=== PATIENT | female | born 1960 | race Caucasian/White ===

== ENCOUNTER 2016-06-28 11:43 | Emergency (ER) | payer BC ==
[~2016-06-28] VITALS: Wt 77.6 kg
[~2016-06-28 11:43] MED LIST: CYCL-319 PO; FLUT9.9S NASAL; GUAI473L22 PO; IBUP-1542 PO; LORA10TA3 PO; NAPR-260 PO; SODI30SP2 NS
[2016-06-28] MEDS ORDERED: ASPIRIN 325 MG TAB PO STA (12:27)
[2016-06-28] MEDS ORDERED: LORAZEPAM 2 MG INJ IV ONE (12:30)
[2016-06-28 13:01] LABS: CHLORIDE 104 mmol/L (97-110); SODIUM 145 mmol/L (135-144)
[2016-06-28 13:02] LABS: POTASSIUM 3.9 mmol/L (3.5-5.1)
[2016-06-28 13:05] LABS: ANION GAP 14 (8-16); BLOOD UREA NITROGEN 14 mg/dl (7-20); CALCIUM 9.5 mg/dl (8.4-10.2); CARBON DIOXIDE 31 mmol/L (21-31); GLUCOSE 99 mg/dl (70-220); INR 0.92; PROTIME 12.4 Sec (12.2-14.2)
[2016-06-28 13:10] LABS: BASOPHILS % 0.6 % (0.0-2.0); EOSINOPHILS # 0.1 10^3/ul (0.0-0.5); EOSINOPHILS % 1.3 % (0.0-7.0); HEMATOCRIT 41.4 % (37.0-47.0); HEMOGLOBIN 13.9 g/dl (12.0-16.0); LYMPHOCYTES % 44.1 % (15.0-51.0); MEAN CORPUSCULAR HEMOGLOBIN 30.2 pg (29.0-33.0); MEAN CORPUSCULAR HGB CONC 33.5 g/dl (32.0-37.0); MEAN PLATELET VOLUME 9.8 fl (7.4-10.4); MONOCYTE # 0.7 10^3/ul (0.3-0.9); MONOCYTES % 10.3 % (0.0-11.0); NEUTROPHIL # 2.9 10^3/ul (1.6-7.5); NEUTROPHILS % 43.7 % (39.0-77.0); PLATELET COUNT 204 10^3/UL (140-440); RED CELL DISTRIBUTION WIDTH 13.4 % (11.5-14.5); UNCORRECTED WBC 6.7 10^3/ul (4.8-10.8); WHITE BLOOD COUNT 6.7 10^3/ul (4.8-10.8)
[2016-06-28 13:14] LABS: CONDITION 1
[2016-06-28 13:17] LABS: TROPONIN-I < 0.012 ng/ml (0.00-0.12)
--- NOTE | 2016-06-28 13:23 | ERD ---
ER Documentation Chief Complaint Date/Time DATE: 06/28/16 TIME: 13:19 Chief Complaint CHEST PAIN X3 DAYS, WORSE TODAY, NO SOB HPI 55-year-old female history of hypertension recently not taking medications based on primary care advisement. The patient presents with elevated blood pressure and chest pain. The patient's history is somewhat different than what was taken at triage. I believe this is secondary to language barrier. Using an adult care provider she states that she has not felt well over the last several days. 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 Once this happened the patient's blood pressure became elevated and the patient described chest pain was pressure-like with associated left arm discomfort. The patient and family member state that these symptoms are very similar to every time the patient becomes anxious. They state that multiple episodes of this have happened in the past. She denies any significant headache and states that the symptoms are very similar to anxiety. She denies any exertional symptoms, no pleuritic pain. She is a non-smoker no family history of early cardiac disease. ROS All systems reviewed and are negative except as per history of present illness. Medications Home Meds Active Scripts Lorazepam* (Ativan*) 0.5 Mg Tablet, 0.5 MG PO Q8H Y for ANXIETY, #8 TAB Prov:ALLISON CARSON MD 06/28/16 Loratadine* (Loratadine*) 10 Mg Tablet, 10 MG PO DAILY, #30 TAB Prov:MARGARITA LOPEZ NP 01/05/16 Ibuprofen* (Motrin*) 600 Mg Tab, 600 MG PO Q6H Y for PAIN AND OR ELEVATED TEMP, #30 TAB Prov:MARGARITA LOPEZ NP 01/05/16 Guaifenesin-Codeine Phosphate* (Guaifenesin* AC Cough Syrup) 473 Ml Liquid, 5 ML PO Q4H Y for COUGH, #120 ML Prov:MARGARITA LOPEZ NP 01/05/16 Sodium Chloride (Saline Nasal [place]) 30 Ml [place], 2 SPR NS Q2H Y for NASAL CONGESTION, #1 BOT Prov:MARGARITA LOPEZ NP 01/05/16 Fluticasone Propionate (Flonase Allergy Relief) 9.9 Ml [place].susp, 1 SPRAY NASAL DAILY, #1 BOTTLE TO EACH NOSTRIL Prov:MARGARITA LOPEZ. [employer] CABLE SPLICER 01/05/16 Cyclobenzaprine Hcl* (Cyclobenzaprine Hcl*) 10 Mg Tablet, 10 MG PO TID for muscle spasm for 5 Days, #15 TAB Prov:MANAGBRANDINODVIKI P [employer] CABLE SPLICER 11/23/15 Naproxen* (Naprosyn*) 500 Mg Tablet, 500 MG PO BID Y for PAIN AND/OR INFLAMMATION for 10 Days, #30 TAB Prov:MANAGUELOD,VIKI P [employer] CABLE SPLICER 11/23/15 Allergies Allergies: Coded Allergies: No Known Allergy (Unverified , 08/07/15) PMhx/Soc History of Surgery: No Anesthesia Reaction: No Hx Neurological Disorder: No Hx Respiratory Disorders: No Hx Cardiac Disorders: No Hx Psychiatric Problems: No Hx Miscellaneous Medical Probl: Yes (HTN) Hx Alcohol Use: No Hx Substance Use: No Hx Tobacco Use: No FmHx Family History: No coronary disease, No diabetes Physical Exam Vitals Vital Signs Date Time Temp Pulse Resp B/P Pulse Ox O2 Delivery O2 Flow Rate FiO2 06/28/16 13:37 68 20 136/68 06/28/16 13:30 Nasal Cannula 06/28/16 11:54 97.3 78 17 192/98 99 Physical Exam General: Well developed, well nourished, no acute distress Head: Normocephalic, atraumatic. Eyes: Pupils equally reactive, EOM intact ENT: Moist mucous membranes Neck: Supple, no lymphadenopathy Respiratory: Lungs clear bilaterally, no distress Cardiovascular: RRR, no murmurs, rubs, or gallops Abdominal: Soft, non-tender, non-distended, no peritoneal signs : Deferred MSK: No edema, no unilateral swelling, 5/5 strength Neurologic: Alert and oriented, moving all extremities, normal speech, no focal weakness, no cerebellar signs Skin: No rash Psych: Anxious mood Result Diagram: 06/28/16 1210 06/28/16 1210 Results 24 hrs Laboratory Tests Test 06/28/16 12:10 Activated Partial Thromboplast Time 33.0Sec Anion Gap 14 Basophils # 0.010^3/ul Basophils % 0.6% Blood Urea Nitrogen 14mg/dl Calcium Level 9.5mg/dl Carbon Dioxide Level 31mmol/L Chloride Level 104mmol/L Creatinine 0.70mg/dl Eosinophils # 0.110^3/ul Eosinophils % 1.3% Glucose Level 99mg/dl Hematocrit 41.4% Hemoglobin 13.9g/dl INR International Normalized Ratio 0.92 Lymphocytes # 3.010^3/ul Lymphocytes % 44.1% Mean Corpuscular Hemoglobin 30.2pg Mean Corpuscular Hemoglobin Concent 33.5g/dl Mean Corpuscular Volume 90.0fl Mean Platelet Volume 9.8fl Monocytes # 0.710^3/ul Monocytes % 10.3% Neutrophils # 2.910^3/ul Neutrophils % 43.7% Nucleated Red Blood Cells # 0.010^3/ul Nucleated Red Blood Cells % 0.0/100WBC Platelet Count 31410^3/UL Potassium Level 3.9mmol/L Prothrombin Time 12.4Sec Prothrombin Time Ratio 1.0 Red Blood Count 4.6010^6/ul Red Cell Distribution Width 13.4% Sodium Level 145mmol/L Troponin I < 0.012ng/ml White Blood Count 6.710^3/ul Current Medications Medications (Trade) Dose Ordered Sig/Cherry Route PRN Reason Start Time Stop Time Status Last Admin Dose Admin Aspirin (Aspirin) 325 mg ONCE STAT PO 06/28/16 12:27 06/28/16 12:29 DC 06/28/16 12:32 Lorazepam (Ativan) 0.5 mg ONCE ONCE IV 06/28/16 12:30 06/28/16 12:31 DC 06/28/16 12:32 Procedures/MDM EKG, MONITORS, & DIAGNOSTIC IMAGING: EKG: I reviewed and interpreted a 12-lead EKG. Rhythm: Normal sinus rhythm Ectopy: None Intervals: No abnormalities ST segments: No elevations or depressions T waves: No contiguous inversions Repeat EKG: EKG: I reviewed and interpreted a 12-lead EKG. Rhythm: Normal sinus rhythm Ectopy: None Intervals: No abnormalities ST segments: No elevations or depressions T waves: No contiguous inversions Chest x-ray: I reviewed and interpreted a 1 view of the chest Mediastinum: No enlargement Cardiac silhouette: No cardiomegaly Airspace: Clear lung gasca bilaterally without evidence of pneumothorax Bones: No evidence of fracture LAB INTERPRETATION: Troponin negative, pending repeat troponin MEDICAL DECISION MAKING: The patient's history, physical exam and clinical presentation is most consistent with likely hypertensive urgency in the setting of anxiety attack. However, given the patient's age and must consider the possibility of acute coronary syndrome. The patient has a better alternative diagnosis with clear explanation of symptoms. She has multiple episodes of this in the past that are similar to anxiety. Based on the patient's clinical exam and history and risk factors, I have a much lower clinical concern for pulmonary embolism, acute aortic dissection, pneumothorax, pneumonia, cardiac tamponade HEART Score: 2 MACE Rate: Less than 1.7% Shared Decision Making: We had a conversation regarding risk stratification, MACE rate, and the risks, benefits, alternatives of disposition planning options. Disposition planning: The patient prefers to go home. We discussed risks, benefits, alternatives. I believe the best recommendation at this time given the patient's age would be a serial three-hour troponin and EKG. If negative then the patient meets very low risk criteria and can be safely managed as an outpatient. Again, better alternative diagnosis, the patient states understanding and has capacity. Lunchroom Aide used. ER COURSE: Patient given aspirin. The patient also states desire for anxiolysis medications which has been provided. Patient's blood pressure was elevated (>120/80) but appears stable without evidence of hypertensive emergency or urgency. The patient was counseled about the risks of hypertension and urged to pursue outpatient monitoring and therapy within a week with their primary care physician. I do not feel that initiation of a blood pressure medication at this time would be appropriate given that her primary care has recently discontinued the blood pressure medication. Outpatient follow-up for reconsideration of medication would be reasonable. The patient's blood pressure has improved. The patient is resting comfortably. Initial troponin negative. Second EKG negative. The patient is awaiting a second troponin at 3 hours. If negative the patient can be safely discharged home. The patient will be endorsed to Dr. Acosta to follow-up on this value. I would anticipate discharge home. I kept the patient and/or family informed of laboratory and diagnostic imaging results throughout the emergency room course. DISPOSITION PLAN: We discussed follow up with the patient's primary care doctor within 24 to 48 hours as needed. We also discussed return to the emergency room for worsening symptoms or worsening condition. Discharge Medications: Ativan 0.5 mg Departure Diagnosis: Primary Impression: Atypical chest pain Additional Impressions: Anxiety reaction Essential hypertension Condition: Stable ALLISON CARSON MD Jun 28, 2016 13:23
--- NOTE | 2016-06-28 13:24 | RADRPT ---
PROCEDURE: XR Chest AP portable CLINICAL INDICATION: Chest pain TECHNIQUE: An AP portable radiograph of the chest was submitted. COMPARISON: 01/05/2016 FINDINGS: Support Hardware: None Cardiovascular: The cardiovascular silhouette appears unremarkable, wall aorta appears mildly tortuo us. Lung [place]: The lung gasca appear clear with no nodule, alveolar infiltrate, for a interstitial pr ominence evident. Pleural Spaces: No pneumothorax or pleural effusion is identified. Osseous Structures: Mild diffuse degenerative spine changes are noted. Soft Tissues: The soft tissues appear unremarkable. IMPRESSION: 1. Mild aortic tortuosity, unchanged. 2. Diffuse degenerative thoracic spine changes. Physician Reyes Date Time Electronically viewed and signed by Physician Reyes on 06/28/2016 13:24 /
[2016-06-28 13:37] VITALS: BP 136/68; PULSE 68; RESP 20
[2016-06-28] MEDS ORDERED: LORA-441 PO (14:17)
== END 2016-06-28 15:54 | disposition home or self-care (01) ==
LOC: E/R 11:43
DX: R07.89 Other chest pain (principal); F41.1 Generalized anxiety disorder; I10 Essential (primary) hypertension; F17.210 Nicotine dependence, cigarettes, uncomplicated
CPT/HCPCS: 36415; 71010; 80048; 84484; 85025; 85610; 85730; 93005; 96374; 99285; J2060; Z7610

== ENCOUNTER 2017-01-21 18:53 | Emergency (ER) | payer BC ==
[~2017-01-21] VITALS: Ht 167.6 cm; Wt 80.0 kg
[~2017-01-21 18:53] MED LIST changes: +LORA-441 PO
[2017-01-21 19:12] VITALS: Ht 167.6 cm; Wt 80.0 kg
--- NOTE | 2017-01-21 19:56 | ERD ---
ER Documentation Chief Complaint Date/Time DATE: 01/21/17 TIME: 19:55 Chief Complaint chest pain radiates to the head and pain HPI 56-year-old female with a long history of poorly controlled hypertension presents the ED complaining of high blood pressure, chest pain and headache. Her blood pressure was significantly elevated at home and she experienced generalized, nonradiating, vague chest pain with mild, gradual onset headache. She has been seen in the ED multiple times for similar symptoms over the last several years. Recently she was told by her PMD that her blood pressure was normal did not require further medications. Admits to feeling anxious but denies depression. No shortness of breath, nausea, vomiting or diaphoresis. No abdominal pain or back pain. Denies visual changes, focal weakness or numbness. No relieving or exacerbating factors. No leg pain or swelling. No fevers or chills. ROS All systems reviewed and are negative except as per history of present illness. Medications Home Meds Active Scripts Lorazepam* (Ativan*) 0.5 Mg Tablet, 0.5 MG PO Q8H Y for ANXIETY, #8 TAB Prov:ALLISON CARSON MD 06/28/16 Loratadine* (Loratadine*) 10 Mg Tablet, 10 MG PO DAILY, #30 TAB Prov:MARGARITA LOPEZ NP 01/05/16 Ibuprofen* (Motrin*) 600 Mg Tab, 600 MG PO Q6H Y for PAIN AND OR ELEVATED TEMP, #30 TAB Prov:MARGARITA LOPEZ NP 01/05/16 Guaifenesin-Codeine Phosphate* (Guaifenesin* AC Cough Syrup) 473 Ml Liquid, 5 ML PO Q4H Y for COUGH, #120 ML Prov:MARGARITA LOPEZ NP 01/05/16 Sodium Chloride (Saline Nasal [place]) 30 Ml [place], 2 SPR NS Q2H Y for NASAL CONGESTION, #1 BOT Prov:MARGARITA LOPEZ NP 01/05/16 Fluticasone Propionate (Flonase Allergy Relief) 9.9 Ml [place].susp, 1 SPRAY NASAL DAILY, #1 BOTTLE TO EACH NOSTRIL Prov:MARGARITA LOPEZ NP 01/05/16 Cyclobenzaprine Hcl* (Cyclobenzaprine Hcl*) 10 Mg Tablet, 10 MG PO TID for muscle spasm for 5 Days, #15 TAB Prov:MARNIEBRANDINODVIKI P CLIENT ANALYST 11/23/15 Naproxen* (Naprosyn*) 500 Mg Tablet, 500 MG PO BID Y for PAIN AND/OR INFLAMMATION for 10 Days, #30 TAB Prov:TERRIODVIKI P CLIENT ANALYST 11/23/15 Allergies Allergies: Coded Allergies: No Known Allergy (Unverified , 08/07/15) PMhx/Soc Reviewed in chart. As per HPI History of Surgery: No Anesthesia Reaction: No Hx Neurological Disorder: No Hx Respiratory Disorders: No Hx Cardiac Disorders: No Hx Psychiatric Problems: No Hx Miscellaneous Medical Probl: Yes (HTN and anxiety ) Hx Alcohol Use: No Hx Substance Use: No Hx Tobacco Use: No Smoking Status: Never smoker FmHx No sudden cardiac , coronary artery disease, diabetes or cancer Physical Exam Vitals Vital Signs Date Time Temp Pulse Resp B/P Pulse Ox O2 Delivery O2 Flow Rate FiO2 01/21/17 22:38 98.4 89 19 149/100 98 01/21/17 20:00 98.3 84 19 156/101 98 Room Air 01/21/17 19:24 231/109 01/21/17 19:12 98.3 68 19 217/116 98 Physical Exam Const: Alert, anxious in moderate distress Head: Atraumatic Eyes: Normal Conjunctiva ENT: Normal External Ears, Nose and Mouth. Neck: Full range of motion.Nontender. No JVD. Resp: Clear to auscultation bilaterally Cardio: Regular rate and rhythm, no murmurs Abd: Soft, non tender, non distended. Normal bowel sounds Skin: No petechiae or rashes Back: No midline or flank tenderness Ext: No cyanosis, or edema Neur: Awake and alert. . Cranial nerves II through XII are grossly intact. No focal deficit observed. Psych: Anxious but not depressed. Result Diagram: 01/21/17195401/21/171954 Results 24 hrs Laboratory Tests Test 01/21/17 19:55 White Blood Count 8.010^3/ul Red Blood Count 5.0710^6/ul Hemoglobin 15.1g/dl Hematocrit 45.8% Mean Corpuscular Volume 90.3fl Mean Corpuscular Hemoglobin 29.8pg Mean Corpuscular Hemoglobin Concent 33.0g/dl Red Cell Distribution Width 12.4% Platelet Count 31760^3/UL Mean Platelet Volume 12.2fl Neutrophils % 53.5% Lymphocytes % 37.7% Monocytes % 6.8% Eosinophils % 1.2% Basophils % 0.6% Nucleated Red Blood Cells % 0.0/100WBC Neutrophils # 4.310^3/ul Lymphocytes # 3.010^3/ul Monocytes # 0.610^3/ul Eosinophils # 0.110^3/ul Basophils # 0.110^3/ul Nucleated Red Blood Cells # 0.010^3/ul Sodium Level 140mmol/L Potassium Level 4.1mmol/L Chloride Level 102mmol/L Carbon Dioxide Level 29mmol/L Anion Gap 13 Blood Urea Nitrogen 12mg/dl Creatinine 0.70mg/dl Glucose Level 103mg/dl Calcium Level 10.4mg/dl Troponin I < 0.012ng/ml Current Medications Medications (Trade) Dose Ordered Sig/Cherry Route PRN Reason Start Time Stop Time Status Last Admin Dose Admin Lorazepam (Ativan) 1 mg ONCE ONCE IV 01/21/17 20:00 01/21/17 20:01 DC 01/21/17 20:02 Ketorolac Tromethamine (Toradol) 15 mg ONCE STAT IV 01/21/17 21:06 01/21/17 21:07 DC 01/21/17 21:19 EKG: Time: 19:13. Sinus rhythm. Ventricular rate 62, normal UT and QRS intervals. No acute ST segment elevation or depression. No axis deviation or ectopy. EP Impression: Normal EKG. PROCEDURE: XR Chest 1 View. CLINICAL INDICATION: Chest pain TECHNIQUE: AP view of the chest was obtained. COMPARISON: June 28, 2016 FINDINGS: The cardiomediastinal silhouette is within normal limits. No consolidations are identified. No pneumothorax is seen. Scattered subsegmental atelectasis is noted in both lungs. Osseous structures are intact. IMPRESSION: Scattered subsegmental atelectasis in both lungs. RPTAT: AA .Jos Ovalle MD, MD Date Time Electronically viewed and signed by .Jos Ovalle MD, on 01/21/2017 21:16 .P/ PROCEDURE: CT head, without contrast. CLINICAL INDICATION: Headache TECHNIQUE: Noncontrast CT examination of the head, with axial, sagittal and coronal reformatted images. Automated dose exposure control was employed. CTDI: 43.95 and DLP: 720.23. COMPARISON: 06/22/2014. FINDINGS: No acute hemorrhage. Subarachnoid spaces are substantially preserved and symmetric. Ventricles are unremarkable. No mass effect. Bird-white matter distinction is preserved without evident decreased attenuation to suggest acute or recent infarct. Sinuses and osseous structures are unremarkable. IMPRESSION: No acute process in the head. RPTAT: [facility] Physician Luz Maria Date Time Electronically viewed and signed by Gregory Nagel Physician on 01/21/2017 21:53 RS/ Procedures/MDM DOCUMENTS REVIEWED: ED nurse, prior records MEDICAL DECISION MAKIN-year-old female with a long history of poorly controlled hypertension presents the ED complaining of high blood pressure, chest pain and headache. Patient has a long history of similar symptoms of multiple ED visits dating back to 2013. Multiple cardiac workups have been unremarkable. Low risk for pulmonary embolism. Doubt aortic dissection. Now presents with uncontrolled hypertension. Symptoms improved significantly with anxiolytics. Mild, gradual onset headache. CT of the brain is negative for infarct or bleed. No altered mental status or signs of hypertensive encephalopathy. Patient's blood pressure was elevated (>120/80) but appears stable without evidence of hypertension emergency or urgency. The patient was counseled about the risks of hypertension and urged to pursue outpatient monitoring and therapy within a week with their primary care physician. Stable for discharge precautionary instructions and outpatient follow-up as counseled. Counseled patient and family regarding diagnostic workup, diagnosis and need for followup. Understands to return to ED if symptoms recur, worsen or any other concerns. Departure Diagnosis: Primary Impression: Chest pain with low risk of acute coronary syndrome Additional Impressions: Uncontrolled hypertension Headache Headache type: unspecified Headache chronicity pattern: episodic headache Intractability: not intractable Qualified Code: R51 - Nonintractable episodic headache, unspecified headache type Condition: Stable (Improved) JULIANA VAUGHN MD Jan 21, 2017 19:56
[2017-01-21] MEDS ORDERED: LORAZEPAM 2 MG INJ IV ONE (20:00)
[2017-01-21 20:17] LABS: BASOPHIL # 0.1 10^3/ul (0.0-0.1); BASOPHILS % 0.6 % (0.0-2.0); EOSINOPHILS # 0.1 10^3/ul (0.0-0.5); EOSINOPHILS % 1.2 % (0.0-7.0); HEMATOCRIT 45.8 % (37.0-47.0); HEMOGLOBIN 15.1 g/dl (12.0-16.0); LYMPHOCYTES % 37.7 % (15.0-51.0); MEAN CORPUSCULAR HEMOGLOBIN 29.8 pg (29.0-33.0); MEAN CORPUSCULAR VOLUME 90.3 fl (82.0-101.0); MEAN PLATELET VOLUME 12.2 fl (7.4-10.4); MONOCYTE # 0.6 10^3/ul (0.3-0.9); MONOCYTES % 6.8 % (0.0-11.0); NEUTROPHIL # 4.3 10^3/ul (1.6-7.5); NEUTROPHILS % 53.5 % (39.0-77.0); PLATELET COUNT 205 10^3/UL (140-415); RED BLOOD COUNT 5.07 10^6/ul (4.20-5.40); RED CELL DISTRIBUTION WIDTH 12.4 % (11.5-14.5)
[2017-01-21 20:49] LABS: ANION GAP 13 (8-16); BLOOD UREA NITROGEN 12 mg/dl (7-20); CALCIUM 10.4 mg/dl (8.4-10.2); CARBON DIOXIDE 29 mmol/L (21-31); CHLORIDE 102 mmol/L (97-110); GLUCOSE 103 mg/dl (70-220); POTASSIUM 4.1 mmol/L (3.5-5.1); SODIUM 140 mmol/L (135-144)
[2017-01-21 21:02] LABS: TROPONIN-I < 0.012 ng/ml (0.00-0.12)
[2017-01-21] MEDS ORDERED: KETOROLAC 15 MG INJ IV STA (21:06)
--- NOTE | 2017-01-21 21:16 | RADRPT ---
PROCEDURE: XR Chest 1 View. CLINICAL INDICATION: Chest pain TECHNIQUE: AP view of the chest was obtained. COMPARISON: June 28, 2016 FINDINGS: The cardiomediastinal silhouette is within normal limits. No consolidations are identified. No pneu mothorax is seen. Scattered subsegmental atelectasis is noted in both lungs. Osseous structures are intact. IMPRESSION: Scattered subsegmental atelectasis in both lungs. RPTAT: AA .Jos Ovalle MD, MD Date Time Electronically viewed and signed by .Jos Ovalle MD, on 01/21/2017 21:16 .P/
--- NOTE | 2017-01-21 21:53 | RADRPT ---
PROCEDURE: CT head, without contrast. CLINICAL INDICATION: Headache TECHNIQUE: Noncontrast CT examination of the head, with axial, sagittal and coronal reformatted im ages. Automated dose exposure control was employed. CTDI: 43.95 and DLP: 720.23. COMPARISON: 06/22/2014. FINDINGS: No acute hemorrhage. Subarachnoid spaces are substantially preserved and symmetric. Ventricles ar e unremarkable. No mass effect. Bird-white matter distinction is preserved without evident decreased attenuation t o suggest acute or recent infarct. Sinuses and osseous structures are unremarkable. IMPRESSION: No acute process in the head. RPTAT: [facility] Physician Luz Maria Date Time Electronically viewed and signed by Physician Luz Maria on 01/21/2017 21:53 RS/
[2017-01-21 22:38] VITALS: BP 149/100; PULSE 89; RESP 19; TEMP 98.4
== END 2017-01-22 00:39 | disposition home or self-care (01) ==
LOC: E/R 18:53
DX: R07.9 Chest pain, unspecified (principal); I10 Essential (primary) hypertension; R51 Headache
CPT/HCPCS: 70450; 71010; 80048; 84484; 85025; 93005; 96374; 96375; 99285; J1885; J2060

== ENCOUNTER 2017-06-09 13:15 | Day surgery (SDC) | END 2017-06-09 16:46 | disposition home or self-care (01) ==

== ENCOUNTER 2017-06-09 18:28 | Emergency (ER) | END 2017-06-09 23:37 | disposition left against medical advice (07) ==

== ENCOUNTER 2017-10-03 06:51 | Emergency (ER) | END 2017-10-03 09:58 | disposition home or self-care (01) ==